=== PATIENT | female | born 1950 | race Caucasian/White ===

== ENCOUNTER 2021-01-20 14:27 | Emergency (ER) | payer MEDICARE, OTHER ==
[2021-01-20] MEDS ORDERED: IOPAMIDOL-300 100 ML VIAL ONE ×2 (14:43→15:06)
[2021-01-20] MEDS ORDERED: SODIUM CHLORIDE 0.9% 1,000 ML IV STA (15:04)
[2021-01-20 15:10] LABS: BASOPHILS # (AUTO) 0.1 10^3/uL (0.0-0.1); BASOPHILS % (AUTO) 0.8 %; EOSINOPHILS # (AUTO) 0.5 10^3/uL (0.0-0.7); EOSINOPHILS % (AUTO) 4.2 %; HCT - HEMATOCRIT 41.8 % (37.0-47.0); HGB - HEMOGLOBIN 14.6 g/dL (12.0-16.0); LYMPHOCYTES % (AUTO) 34.3 %; MEAN CORPUSCULAR HEMOGLOBIN 31.8 pg (27.0-31.0); MEAN CORPUSCULAR HGB CONC 34.9 g/dL (32.0-36.0); MEAN CORPUSCULAR VOLUME 91.1 fL (81.0-99.0); MEAN PLATELET VOLUME 10.3 fL (7.9-10.8); MONOCYTES # (AUTO) 0.8 10^3/uL (0.0-1.0); MONOCYTES % (AUTO) 6.4 %; NEUTROPHILS # (AUTO) 6.4 10^3/uL (1.5-6.6); NEUTROPHILS % (AUTO) 53.9 %; PLT - PLATELET COUNT 281 10^3/uL (130-450); RED BLOOD COUNT 4.59 10^6/uL (4.20-5.40); RED CELL DISTRIBUTION WIDTH 12.5 % (12.0-15.0); WHITE BLOOD COUNT 11.8 x10^3/uL (4.8-10.8)
[2021-01-20 15:23] LABS: ALBUMIN 4.6 g/dL (3.2-5.5); ALBUMIN/GLOBULIN RATIO 1.5 (1.0-2.2); BILIRUBIN,TOTAL 0.6 mg/dL (0.2-1.0); CALCIUM 9.9 mg/dL (8.5-10.3); CREATININE 0.7 mg/dL (0.4-1.0); POTASSIUM 3.4 mmol/L (3.5-5.0); TOTAL PROTEIN 7.6 g/dL (6.7-8.2)
--- NOTE | 2021-01-20 16:20 | CT Report ---
PROCEDURE: ANGIO HEAD W/WO INDICATIONS: L sided facial droop CONTRAST: IV CONTRAST: Isovue 300 ml: 80 PO CONTRAST: *NO PO CONTRAST TECHNIQUE: Precontrast 4.5 mm thick angled axial sections acquired from the foramen magnum to the vertex. Afte r the administration of intravenous contrast, 1 mm thick sections acquired through the [place] of [place] is. Postcontrast 4.5 mm thick sections then re-acquired from the foramen magnum to the vertex. 3-di mensional jtolkhg-ofzegplqd-lsuvkxygof (MIP) and/or volume rendering reformats were acquired of the c entral intracranial vasculature. For radiation dose reduction, the following was used: automated ex posure control, adjustment of mA and/or kV according to patient size. COMPARISON: None. FINDINGS: Image quality: Excellent. Anterior circulation: There is atherosclerotic plaque and calcification within the carotid siphons, w ithout hemodynamic significant stenosis. The anterior cerebral arteries, middle cerebral arteries, an d their major proximal branches are all patent. There is luminal irregularity of the anterior and mid dle cerebral artery proximal branches likely reflecting noncalcified atherosclerotic change. No hemod ynamically significant stenosis identified. Posterior circulation: Narrowing of the V4 segments secondary to soft and calcified atherosclerotic p laque. The basilar artery is unremarkable. Both posterior cerebral arteries are widely patent. Mechanical Assembly Technician ior to indicating arteries are normal. Brain: No acute intracranial hemorrhage, abnormal extra axial fluid collection, mass effect, or midli ne shift. The ventricles and basilar cisterns are patent. No loss of seals-white matter differentiatio n to serve as CT evidence of acute large territory infarct. Skull and face: Calvarium and facial bones appear intact, without suspicious lesions. Sinuses: Visualized sinuses and mastoids are clear. IMPRESSION: No acute intracranial finding. No branch occlusion or hemodynamically significant stenosis of the major intracranial arterial vascul ature. Mild intracranial atherosclerosis as described above. Reviewed by: Usman Blanco MD on 01/20/2021 4:19 PM PDT Approved by: Usman Blanco MD on 01/20/2021 4:19 PM PDT Station ID: [id number]
--- NOTE | 2021-01-20 16:23 | CT Report ---
PROCEDURE: ANGIO NECK W INDICATIONS: L sided facial droop, L neck pain CONTRAST: IV CONTRAST: Isovue 300 ml: 80 PO CONTRAST: *NO PO CONTRAST TECHNIQUE: After the administration of intravenous contrast, 1.5 mm axial sections acquired from the aortic arch to the [place] of [place]. Coronal 3-D maximum intensity projection (MIP) and/or volume rendering ref ormats were then performed. For radiation dose reduction, the following was used: automated exposur e control, adjustment of mA and/or kV according to patient size. COMPARISON: None. FINDINGS: Image quality: Excellent. Carotid system: The great vessels demonstrate a pulmonary anatomy as they arise from the aortic arch . The origins of the common carotid arteries appear patent. The common carotid arteries demonstrate normal calibers and courses. Atherosclerotic calcification noted on the origins of the internal richardson tid arteries bilaterally which causes less than 50% stenosis of the vessels. Posterior circulation: The origins of the vertebral arteries appear patent. The more superior porti ons of the cervical segments of the vertebral arteries demonstrate normal course and caliber. Soft tissues: Visualized neck soft tissues demonstrate no suspicious abnormalities. The thyroid gla nd contains a 1.1 and 1.0 cm nodules in the left lobe. Bones: No suspicious bony lesions. Spine dege nerative disc disease and facet arthropathy are noted. Visualized cervical spine appears normally al igned. IMPRESSION: 1. Less than 50% stenosis of the origins of the internal carotid arteries bilaterally. 2. Cervical segments of the vertebral arteries fully patent. 3. 1.1 to 1.0 cm left thyroid nodules. Recommend thyroid ultrasound for definitive characterization c linically feasible. Please see CT angiogram of the head for description of the intracranial segments of the internal richardson tid arteries and the vertebral arteries. The estimate of stenosis included in the report of the imaging study was calculated using the NASCET method Reviewed by: Delma Marie MD, PhD on 01/20/2021 4:22 PM PDT Approved by: Delma Marie MD, PhD on 01/20/2021 4:22 PM PDT Station ID: [id number]
[2021-01-20] MEDS ORDERED: IOPAMIDOL-300 100 ML VIAL IVP ONE (16:40)
--- NOTE | 2021-01-20 17:39 | ED Physician Documentation ---
PD HPI FOCAL NEURO - Stated complaint Stated Complaint: STROKE LIKE SYMPTOMS - Chief complaint Chief Complaint: Neuro - History obtained from History obtained from: Patient, Family - History of Present Illness Timing - onset: How many hours ago (onset about 8 am, and more notable/distinct at 10-10:30 when got out of car. 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 She states it felt worse when she got out of the car and also noticed right arm fumbling this with trying to eat. No facial weakness. Concern for stroke.) Severity of deficit: Moderate Weakness: Arm, Leg, Right. No: Face Numbness: Leg, Right. No: Face, Arm Associated symptoms: No: Headache, Nausea / vomiting, Seizure, Syncope, Fall, Head injury, Neck pain Contributing factors: negative: Anticoagulated, Vascular dz, Atrial fibrillation Baseline status: positive: A&OX3, ambulatory, indep Similar symptoms before: Has not had sx before Recently seen: Not recently seen Review of Systems Constitutional: denies: Fever, Chills Nose: denies: Rhinorrhea / runny nose, Congestion Throat: denies: Sore throat Respiratory: denies: Dyspnea GI: denies: Abdominal Pain, Nausea, Vomiting, Diarrhea Skin: denies: Rash, Lesions Neurologic: reports: Focal weakness. denies: Near syncope, Confused, Headache, LOC Endocrine: denies: Easy bruising / bleeding Immunocompromised: denies: Immunocompromised PD PAST MEDICAL HISTORY - Past Medical History Past Medical History: Yes Cardiovascular: Hypertension Respiratory: None Neuro: None Endocrine/Autoimmune: None, Type 2 diabetes MANAGER BASKETBALL: Other : None Musculoskeletal: None Other Past Medical History: double cervix - Past Surgical History Past Surgical History: Yes Ortho: Carpal Tunnel surgery /MANAGER BASKETBALL: LEEP (Cervical surgery) - Allergies Allergies/Adverse Reactions: Allergies Allergy/AdvReac Type Severity Reaction Status Date / Time No Known Drug Allergies Allergy Verified 01/20/21 14:44 - Social History Does the pt smoke?: No Smoking Status: Never smoker Does the pt drink ETOH?: No Does the pt have substance abuse?: No - Immunizations Immunizations are current?: Yes PD ED PE NORMAL - Vitals Vital signs reviewed: Yes - General General: Alert and oriented X 3, No acute distress, Well developed/nourished - HEENT HEENT: Moist mucous membranes, Pharynx benign - Neck Neck: Supple, no meningeal sign, No adenopathy - Cardiac Cardiac: RRR, No murmur - Respiratory Respiratory: Clear bilaterally - Abdomen Abdomen: Soft, Non tender, Other (mild obese) - Back Back: No CVA TTP - Derm Derm: Normal color, Warm and dry - Extremities Extremities: No tenderness to palpate, Normal ROM s pain - Neuro Neuro: Alert and oriented X 3, debubblizer 2-12 intact, Normal speech Eye Opening: Spontaneous Motor: Obeys Commands Verbal: Oriented GCS Score: 15 NIHSS - Level of Consciousness Level of consciousness: (0) Alert, Keenly responsive LOC Questions: (0) Answers both Q's correct LOC Commands: (0) Performs both correctly - Gaze Best Gaze: (0) Normal - Visual Visual: (0) No loss - Facial Palsy Facial Palsy: (0) Normal, symmetrical movement - Motor Arms (both separate) Motor Arm (right): (1) Drift Motor Arm (left): (0) No drift - Motor Legs (both separate) Motor Leg (right): (1) Drift Motor Leg (left): (0) No drift - Limb Ataxia Limb Ataxia: (1) Present in 1 limb - Sensory Sensory: (1) Jsej-co-tlozpyvp loss - Best Language Best Language: (0) No aphasia - Dysarthria Dysarthria: (0) Normal - Extinction and Inattention (formally neg Extinction and inattention: (0) No abnormality - Total Score/Results Total Score/Result: 4 Results - Vitals Vitals: Vital Signs - 24 hr 01/20/21 01/20/21 01/20/21 14:44 14:49 15:16 Temperature 36.6 C 36.6 C 36.5 C Heart Rate 106 H 100 96 Respiratory 16 18 15 Rate Blood Pressure 196/85 H 196/85 H 194/94 H O2 Saturation 100 100 100 01/20/21 01/20/21 01/20/21 15:30 16:10 16:30 Temperature 36.6 C Heart Rate 96 93 90 Respiratory 22 16 16 Rate Blood Pressure 207/96 H 198/95 H 171/87 H O2 Saturation 98 100 100 01/20/21 17:00 Temperature Heart Rate 99 Respiratory 16 Rate Blood Pressure 149/115 H O2 Saturation 100 Oxygen O2 Source Room air - Labs Labs: Laboratory Tests 01/20/21 01/20/21 01/20/21 14:43 14:43 14:43 WBC 11.8 H RBC 4.59 Hgb 14.6 Hct 41.8 MCV 91.1 MCH 31.8 H MCHC 34.9 RDW 12.5 Plt Count 281 MPV 10.3 Neut # (Auto) 6.4 Lymph # (Auto) 4.0 H [place] # (Auto) 0.8 Eos # (Auto) 0.5 Baso # (Auto) 0.1 Absolute Nucleated RBC 0.00 Nucleated RBC % 0.0 ESR 8 Sodium 137 Potassium 3.4 L Chloride 98 L Carbon Dioxide 27 Anion Gap 12.0 BUN 15 Creatinine 0.7 Estimated GFR (MDRD) 82 L Glucose 293 H Calcium 9.9 Magnesium 2.0 Total Bilirubin 0.6 AST 19 ALT 20 Alkaline Phosphatase 75 Total Protein 7.6 Albumin 4.6 Globulin 3.0 Albumin/Globulin Ratio 1.5 Lipase 31 - Rads (name of study) head CT/CT-A Radiology: Prelim report reviewed (No acute findings, no major vascular occlusions.), See rad report neck angio Radiology: Prelim report reviewed (No vascular occlusion significant for stenoses.), See rad report PD MEDICAL DECISION MAKING - ED course Complexity details: considered differential (Patient has onset of right arm and leg ataxia and weakness but not facial. Timeframe is at least 4-1/2 up to 6-1/2 hours prior to presentation. She did have a CT angio of the head and neck without any notable bleeding masses tumors or notable stroke. No major vessel stenoses or occlusions.), d/w patient ED course: MRI is unavailable at our facility indefinitely. The patient and her were updated on findings. Their preference is [facility] which goes along with their [employer] insurance. The loading unit tool setter contacted [facility] who contacted me with the [place] emergency physician who accepted transfer the patient. Concern is for small stroke causing the symptoms. No major vascular occlusions are noted so no acute endovascular interventions are indicated. Departure - Departure Disposition: 02 Transfer Acute Care Hosp Clinical Impression: Right sided weakness Condition: Stable
[2021-01-20] MEDS ORDERED: ASPIRIN CHEW 81 MG TABLET PO STA (18:19)
[2021-01-20 19:19] LABS: B. PARAPERTUSSIS- RESP PCR PAN NOT DETECTED; B. PERTUSSIS- RESP PCR PANEL NOT DETECTED; C. PNEUMONIAE- RESP PCR PANEL NOT DETECTED; CORONAVIRUS 229E-RESP PCR NOT DETECTED; CORONAVIRUS HKU1-RESP PCR NOT DETECTED; CORONAVIRUS NL63-RESP PCR NOT DETECTED; CORONAVIRUS OC43-RESP PCR NOT DETECTED; HUMAN METAPNEUMOVIRUS NOT DETECTED; INFLUENZA A- RESP PCR PANEL NOT DETECTED; INFLUENZA B - RESP PCR PANEL NOT DETECTED; M. PNEUMONIAE- RESP PCR PANEL NOT DETECTED; PARAINFLUENZA VIRUS 1 NOT DETECTED; PARAINFLUENZA VIRUS 2 NOT DETECTED; PARAINFLUENZA VIRUS 3 NOT DETECTED; PARAINFLUENZA VIRUS 4 NOT DETECTED; RHINOVIRUS/ENTEROVIRUS NOT DETECTED; RSV- RESP PCR PANEL NOT DETECTED; SARS-CoV-2 -RESP PCR PANEL NOT DETECTED
[2021-01-20 19:52] VITALS: BP 133/100
== END 2021-01-20 19:54 | disposition short-term general hospital (02) ==
LOC: ED 14:27
DX: R29.898 Other symptoms and signs involving the musculoskeletal system (principal); R27.0 Ataxia, unspecified; R00.0 Tachycardia, unspecified; I10 Essential (primary) hypertension; E11.9 Type 2 diabetes mellitus without complications; E04.1 Nontoxic single thyroid nodule; Z20.822 Contact with and (suspected) exposure to COVID-19
CPT/HCPCS: 36415; 70496; 70498; 80053; 83690; 83735; 85025; 85651; 87631; 93005; 99284; 99285; A9270; Q9967; 0202U